=== PATIENT | male | born 1975 ===

== ENCOUNTER 2018-01-10 09:30 | Outpatient (CLI) | payer OTHER ==
[~2018-01-10] VITALS: Ht 180.3 cm; Wt 149.7 kg
[2018-01-10] MEDS ORDERED: CIPRO500 MG PO (11:55)
[2018-01-10] MEDS ORDERED: FLONASE16 GM NASAL (11:55)
[2018-01-10] MEDS ORDERED: OFLOXACIN5 ML OTIC (11:55)
== END 2018-01-10 09:45 | disposition home or self-care (01) ==
LOC: OFIC 805 09:30
DX: G47.33 Obstructive sleep apnea (adult) (pediatric) (principal); H66.3X3 Other chronic suppurative otitis media, bilateral; H70.892 Other mastoiditis and related conditions, left ear; E66.8 Other obesity; J31.0 Chronic rhinitis; R06.83 Snoring